=== PATIENT | female | born 1950 | race Caucasian/White ===

== ENCOUNTER 2019-07-06 12:25 | Emergency (ER) | payer MEDICARE ==
[2019-07-06 12:35] VITALS: BP 123/72; PULSE 58
[2019-07-06] MEDS ORDERED: Sodium Chloride 0.9% 10 ML Syringe FLUSH PRN (12:40)
--- NOTE | 2019-07-06 12:40 | EDM.PDOC ---
ED HPI GENERAL MEDICAL PROBLEM - General Chief Complaint: Chest Pain Stated Complaint: CHEST AND JAW PAIN Time Seen by Provider: 07/06/19 12:39 Source of Information: Reports: Patient, Old Records, RN, RN Notes Reviewed History Limitations: Reports: No Limitations - History of Present Illness INITIAL COMMENTS - FREE TEXT/NARRATIVE: Pt presents ER from home by POV with c/o sudden onset of sharp pain across the upper chest that radiated to the right jaw. The pain began while at rest at approximately 1130HRS and lasted a few minutes, then went away. Pt states she got to the ER about 20 minutes after the pain resolved. She did not take any medications, or do anything to make the pain go away. Now in the ER she states that she feels well, and symptoms free, but is anxious and would like to be checked out. She denies cough, shortness of breath, N/V, fever, chills, edema, palpitations, or orthopnea. Denies any Hx of CAD or IL. Onset: Today, Sudden Duration: Resolved Prior to Arrival Quality: Reports: Sharp Severity: Moderate Improves with: Reports: None Worsens with: Reports: None Associated Symptoms: Reports: No Other Symptoms Treatments GUT PULLER: Reports: NSAIDS Other Treatments GUT PULLER: Advil 400mg po GUT PULLER. - Related Data Allergies Allergy/AdvReac Type Severity Reaction Status Date / Time Penicillins Allergy Rash Verified 07/06/19 13:02 Home Meds: Home Meds ALPRAZolam [Alprazolam] 1 mg ORAL.INH DAILY 07/11/15 [History] ARIPiprazole [Abilify] 2 mg PO DAILY 07/06/19 [History] FLUoxetine [PROzac] 10 mg PO DAILY 07/06/19 [History] Omeprazole 40 mg PO DAILY 07/06/19 [History] Pregabalin [Lyrica] 100 mg PO TID 07/06/19 [History] Past Medical History Genitourinary History: Reports: Other (See Below) Other Genitourinary History: Kidney stone Musculoskeletal History: Reports: Fracture, Osteoporosis Other Musculoskeletal History: Hip fracture Psychiatric History: Reports: Anxiety, Depression, Other (See Below) Other Psychiatric History: Insomnia Endocrine/Metabolic History: Reports: Hypothyroidism, Vitamin D Deficiency - Past Surgical History Musculoskeletal Surgical History: Reports: Other (See Below) Social & Family History - Family History Psychiatric: Reports: Depression Other Psychiatric Family History: Brother - Living Situation & Occupation Living situation: Reports: with Family ED ROS GENERAL - Review of Systems Review Of Systems: Comprehensive ROS is negative, except as noted in HPI. ED EXAM, GENERAL - Physical Exam Exam: See Below Exam Limited By: No Limitations General Appearance: Alert, WD/WN, No Apparent Distress, Anxious Eye Exam: Bilateral Eye: Normal Inspection Nose: Normal Inspection, Normal Mucosa, No Blood Throat/Mouth: Normal Inspection, Normal Lips, Normal Teeth, Normal Gums, Normal Oropharynx, Normal Voice, No Airway Compromise Head: Atraumatic, Normocephalic Neck: Normal Inspection, Supple, Non-Tender, Full Range of Motion Respiratory/Chest: No Respiratory Distress, Lungs Clear, Normal Breath Sounds, No Accessory Muscle Use, Chest Non-Tender Cardiovascular: Normal Peripheral Pulses, Regular Rate, Rhythm, No Edema, No Gallop, No JVD, No Murmur, No Rub GI/Abdominal: Normal Bowel Sounds, Soft, Non-Tender, No Organomegaly, No Distention, No Abnormal Bruit, No Mass Back Exam: Normal Inspection Extremities: Normal Inspection, Normal Range of Motion, Non-Tender, Normal Capillary Refill, No Pedal Edema Neurological: Alert, Oriented, CN II-XII Intact, Normal Cognition, No Motor/ Sensory Deficits Psychiatric: Normal Affect, Normal Mood Skin Exam: Warm, Dry, Intact, Normal Color, No Rash EKG INTERPRETATION EKG Date: 07/06/19 Time: 12:32 Rhythm: Other (SR) Rate (Beats/Min): 63 [place]: LAD-Left [place] Deviation P-Wave: Present QRS: Normal ST-T: Normal QT: Normal Comparison: NA - No Prior EKG Course - Vital Signs Last Recorded V/S: Last Vital Signs Temp 97.8 F 07/06/19 12:34 Pulse 58 L 07/06/19 12:34 Resp 15 07/06/19 12:34 BP 123/72 07/06/19 12:34 Pulse Ox 98 07/06/19 12:34 - Orders/Labs/Meds Orders: Active Orders 24 hr Category Date Time Status EKG 12 Lead [EKG Documentation Completion] [RC] STAT Care 07/06/19 12:40 Active Peripheral IV Care [RC] . DIRECTED Care 07/06/19 12:40 Active Sodium Chloride 0.9% [Saline Flush] Med 07/06/19 12:40 Active 10 ml FLUSH ASDIRECTED PRN Peripheral IV Insertion Adult [OM.PC] Stat Oth 07/06/19 12:40 Ordered Medication Orders Sodium Chloride (Saline Flush) 10 ml FLUSH ASDIRECTED PRN PRN Reason: Keep Vein Open Last Admin: 07/06/19 13:00 Dose: 10 ml Labs: Laboratory Tests 07/06/19 07/06/19 Range/Units 12:43 13:07 WBC 8.1 (5.0-10.0) 10^3/uL RBC 4.99 (4.2-5.4) 10^6/uL Hgb 14.7 (12.0-16.0) g/dL Hct 43.5 (37.0-47.0) % MCV 87.2 (80-100) fL MCH 29.5 (27.0-34.0) pg MCHC 33.8 (33.0-35.0) g/dL Plt Count 264 (150-450) 10^3/uL Neut % (Auto) 65.5 (42.2-75.2) % Lymph % (Auto) 27.4 (20.5-50.1) % Richardson % (Auto) 6.2 (2-8) % Eos % (Auto) 0.4 L (1.0-3.0) % Baso % (Auto) 0.5 (0.0-1.0) % Sodium 138 (135-145) mmol/L Potassium 4.0 (3.6-5.0) mmol/L Chloride 104 (101-111) mmol/L Carbon Dioxide 25.0 (21.0-31.0) mmol/L Anion Gap 13.0 BUN 14 (7-18) mg/dL Creatinine 1.2 (0.6-1.3) mg/dL Est Cr Clr Drug Dosing 43.17 mL/min Estimated GFR (MDRD) 45 BUN/Creatinine Ratio 11.66 Glucose 94 (74-105) mg/dL Calcium 9.0 (8.4-10.2) mg/dl Total Bilirubin 0.7 (0.2-1.0) mg/dL AST 16 (10-42) IU/L ALT 13 (10-60) IU/L Alkaline Phosphatase 68 (42-121) IU/L Troponin I < 0.02 (0.00-0.02) ng/ml Total Protein 7.5 (6.7-8.2) g/dl Albumin 4.1 (3.2-5.5) g/dl Globulin 3.4 Albumin/Globulin Ratio 1.21 Lipase 29 (22-51) U/L Meds: Medications Generic Name Dose Route Start Last Admin Trade Name Tuan PRN Reason Stop Dose Admin Sodium Chloride 10 ml 07/06/19 12:40 07/06/19 13:00 Saline Flush FLUSH 10 ml ASDIRECTED PRN Administration Keep Vein Open Discontinued Medications Generic Name Dose Route Start Last Admin Trade Name Freq PRN Reason Stop Dose Admin Aspirin 324 mg 07/06/19 12:47 07/06/19 12:52 Aspirin PO 07/06/19 12:48 324 mg ONETIME ONE Administration - Radiology Interpretation Free Text/Narrative:: CXR: no acute process, see Rad. report. - Re-Assessments/Exams Free Text/Narrative Re-Assessment/Exam: 07/06/19 14:53 The ER became busy with several ill/critical pt's and the pt refused to wait to hear her lab results or to be discharged and chose to leave AMA. Departure - Departure Time of Disposition: 14:54 Disposition: Against Medical Advice 07 Condition: Undetermined Clinical Impression: Left against medical advice Forms: ED Department Discharge, Refusal of Care AMA Additional Instructions: Left AMA. Sepsis Event Note - Evaluation Sepsis Screening Result: No Definite Risk - Focused Exam Vital Signs: Vital Signs Temp Pulse Resp BP Pulse Ox 07/06/19 12:34 97.8 F 58 L 15 123/72 98 Date Exam was Performed: 07/06/19 Time Exam was Performed: 14:53 - My Orders Last 24 Hours: My Active Orders 07/06/19 12:40 EKG 12 Lead [EKG Documentation Completion] [RC] STAT Peripheral IV Care [RC] . DIRECTED Sodium Chloride 0.9% [Saline Flush] 10 ml FLUSH ASDIRECTED PRN Peripheral IV Insertion Adult [OM.PC] Stat - Assessment/Plan Last 24 Hours: My Active Orders 07/06/19 12:40 EKG 12 Lead [EKG Documentation Completion] [RC] STAT Peripheral IV Care [RC] . DIRECTED Sodium Chloride 0.9% [Saline Flush] 10 ml FLUSH ASDIRECTED PRN Peripheral IV Insertion Adult [OM.PC] Stat
[2019-07-06] MEDS ORDERED: Aspirin 81 MG Tab.Chew PO ONE (12:47)
[2019-07-06 13:36] LABS: CHLORIDE,CL 104 mmol/L (101-111); SODIUM,NA 138 mmol/L (135-145)
--- NOTE | 2019-07-06 14:01 | CR ---
EXAMINATION: Chest 1V Frontal SEX: Female AGE: 68 years CLINICAL HISTORY: 68-year-old female complaining of CHEST PAIN. INTERPRETATION: 1. Normal cardiac silhouette (external quality assurance monitor body leads). No pulmonary vascular congestion, cephalization of vascular flow, alveolar edema or dependent pleural effusion. 2. No lung mass, hilar lymphadenopathy or focal lobar pneumonia. 3. No focal lobar pneumonia. No atelectasis/collapse. 4. No pneumothorax, pneumomediastinum or free subdiaphragmatic air. CONCLUSION: No acute cardiopulmonary abnormality.
== END 2019-07-06 14:42 | disposition left against medical advice (07) ==
LOC: DL.ED 12:25
DX: R07.9 Chest pain, unspecified (principal); F41.9 Anxiety disorder, unspecified; F32.9 Major depressive disorder, single episode, unspecified; Z53.29 Procedure and treatment not carried out because of patient's decision for other reasons; Z79.899 Other long term (current) drug therapy
CPT/HCPCS: 36415; 71045; 80053; 83690; 84484; 85025; 93005; 99285; A9270

== ENCOUNTER 2021-02-25 20:56 | Emergency (ER) | payer MEDICARE, BC ==
[2021-02-25 21:20] VITALS: BP 109/75; PULSE 81
[2021-02-25] MEDS ORDERED: Diphtheria,Pertussis(Acell),Tetanus Vaccine 0.5 ML Syringe IM ONE (21:20)
[2021-02-25] MEDS ORDERED: Bacitracin Oint 1 GM U/D Packet TOP ONE (21:37)
[2021-02-25] MEDS ORDERED: Lidocaine 1% 30 ML SDV INJECT ONE (21:37)
--- NOTE | 2021-02-25 21:37 | EDM.PDOC ---
ED HPI GENERAL MEDICAL PROBLEM - General Chief Complaint: Lower Extremity Injury/Pain Stated Complaint: CUT FOOT Time Seen by Provider: 02/25/21 21:33 Source of Information: Reports: Patient, RN Notes Reviewed - History of Present Illness INITIAL COMMENTS - FREE TEXT/NARRATIVE: Pt is here for a left foot laceration. She stubbed her toe around 130 or 2 this afternoon. Her first friend told her it was ok, but her second friend told her she was going to need sutures so she is here for further evaluation. The bleeding has stopped prior to arrival. She denies any numbness or tingling of the toes. Onset: Today Onset Time: 13:30 Left Foot Pain Score (Numeric/FACES): 3 - Related Data Allergies Allergy/AdvReac Type Severity Reaction Status Date / Time Penicillins Allergy Rash Verified 07/06/19 13:02 Home Meds: Home Meds ALPRAZolam [Alprazolam] 1 mg ORAL.INH DAILY 07/11/15 [History] ARIPiprazole [Abilify] 2 mg PO DAILY 07/06/19 [History] Pregabalin [Lyrica] 100 mg PO TID 07/06/19 [History] RX: FLUoxetine [PROzac] 10 mg PO DAILY 07/06/19 [History] RX: Omeprazole 40 mg PO DAILY 07/06/19 [History] Past Medical History HEENT History: Reports: None Cardiovascular History: Reports: None Respiratory History: Reports: None Gastrointestinal History: Reports: GERD Genitourinary History: Reports: Other (See Below) Other Genitourinary History: Kidney stone [employer] History: Reports: Musculoskeletal History: Reports: Fracture, Osteoporosis Other Musculoskeletal History: Hip fracture Neurological History: Reports: None Psychiatric History: Reports: Anxiety, Depression, Other (See Below) Other Psychiatric History: Insomnia Endocrine/Metabolic History: Reports: Hypothyroidism, Vitamin D Deficiency Hematologic History: Reports: None Immunologic History: Reports: None Oncologic (Cancer) History: Reports: None Dermatologic History: Reports: None - Infectious Disease History Infectious Disease History: Reports: Chicken Pox, Measles, Mumps - Past Surgical History Head Surgeries/Procedures: Reports: None Other Female Surgeries/Procedures: Breat lumpectomy Musculoskeletal Surgical History: Reports: Other (See Below) Other Musculoskeletal Surgeries/Procedures:: pinned hip Oncologic Surgical History: Reports: None Social & Family History - Family History Family Medical History: No Pertinent Family History Psychiatric: Reports: Depression Other Psychiatric Family History: Brother - Tobacco Use Tobacco Use Status *Q: Never Tobacco User Second Hand Smoke Exposure: No - Caffeine Use Caffeine Use: Reports: Soda - Recreational Drug Use Recreational Drug Type: Reports: Marijuana/Hashish - Living Situation & Occupation Living situation: Reports: with Family Review of Systems - Review of Systems Review Of Systems: Comprehensive ROS is negative, except as noted in HPI. ED EXAM, GENERAL - Physical Exam Exam: See Below Exam Limited By: No Limitations General Appearance: Alert, WD/WN, No Apparent Distress Eye Exam: Bilateral Eye: Normal Inspection Ears: Normal External Exam Throat/Mouth: Normal Voice, No Airway Compromise Head: Atraumatic, Normocephalic Neck: Supple, Non-Tender Respiratory/Chest: No Respiratory Distress, Normal Breath Sounds Cardiovascular: Normal Peripheral Pulses, Regular Rate, Rhythm GI/Abdominal: Soft, No Distention (Female) Exam: Deferred Rectal (Female) Exam: Deferred Back Exam: Normal Inspection, Full Range of Motion Extremities: Normal Inspection, No Pedal Edema, Normal Capillary Refill Neurological: Alert, Oriented, Normal Cognition, No Motor/Sensory Deficits Psychiatric: Normal Affect, Normal Mood Skin Exam: Warm, Dry, Wound/Incision (laceration on plantar aspect of left great toe, about 2.5 cm in length, well approximated at neutral position, but gapes open 3-4 mm when toe is dorsiflexed. No foreign material identified. wound explored and is about 5 mm deep, no tendon or bone involvement. ) ED TRAUMA EXTREMITY PROCEDURES - Laceration/Wound Repair Left Ventral Toe - Great Lac/Wound Length In cm: 2.5 Appearance: Subcutaneous, Linear Distal NVT: Neuro & Vascular Intact Anesthetic Type: Local Local Anesthesia - Lidocaine (Xylocaine): 1% Plain Local Anesthetic Volume: Other (8 cc) Skin Prep: Chlorhexidine (Hibiciens) Exploration/Debridement/Repair: Wound Explored, Explored to Base, No Foreign Material Found Closed With: Sutures Suture Size: 4-0 # of Sutures: 4 Suture Type: Silk, Interrupted, Simple Sterile Dressing Applied: Nurse Tetanus Status Addressed: Yes Complications: No Course - Vital Signs Last Recorded V/S: Last Vital Signs Temp 97.8 F 02/25/21 21:15 Pulse 81 02/25/21 21:15 Resp 16 02/25/21 21:15 BP 109/75 02/25/21 21:15 Pulse Ox 95 02/25/21 21:15 - Orders/Labs/Meds Orders: Active Orders 24 hr Category Date Time Status Vaccines to be Administered [RC] PER UNIT ROUTINE Care 02/25/21 21:20 Active Meds: Medications Discontinued Medications Generic Name Dose Route Start Last Admin Trade Name Tuan PRN Reason Stop Dose Admin Bacitracin 1 dose 02/25/21 21:37 Bacitracin Oint 1 Gm U/D Packet TOP 02/25/21 21:38 ONETIME ONE Diphtheria/Tetanus/Acell Pertussis 0.5 ml 02/25/21 21:20 02/25/21 21:28 Diphtheria,Pertussis(Acell),Tetanus Vaccine 0.5 Ml Syringe IM 02/25/21 21:21 0.5 ml .ONCE ONE Administration Lidocaine HCl 30 ml 02/25/21 21:37 Lidocaine 1% 30 Ml Sdv INJECT 02/25/21 21:38 ONETIME ONE Departure - Departure Time of Disposition: 22:05 Disposition: Home, Self-Care 01 Condition: Good Clinical Impression: Laceration of foot Qualifiers: Encounter type: initial encounter Laterality: left Qualified Code(s): S91.312A - Laceration without foreign body, left foot, initial encounter - Discharge Information *PRESCRIPTION DRUG MONITORING PROGRAM REVIEWED*: Not Applicable *COPY OF PRESCRIPTION DRUG MONITORING REPORT IN PATIENT TAY: Not Applicable Instructions: Laceration Care, Adult, [id number] Forms: ED Department Discharge Additional Instructions: Over the counter medications and ice therapy as needed for pain If area becomes red, hot and/or painful, call/return to the ER as these may be signs of infection. Follow up with primary care provider in 7-10 days for suture removal Sepsis Event Note (ED) - Evaluation Sepsis Screening Result: No Definite Risk - Focused Exam Vital Signs: Vital Signs Temp Pulse Resp BP Pulse Ox 02/25/21 21:15 97.8 F 81 16 109/75 95 - My Orders Last 24 Hours: My Active Orders 02/25/21 21:20 Vaccines to be Administered [RC] PER UNIT ROUTINE - Assessment/Plan Last 24 Hours: My Active Orders 02/25/21 21:20 Vaccines to be Administered [RC] PER UNIT ROUTINE
== END 2021-02-25 22:55 | disposition home or self-care (01) ==
LOC: DL.ED 20:56
DX: S91.112A Laceration without foreign body of left great toe without damage to nail, initial encounter (principal); K21.9 Gastro-esophageal reflux disease without esophagitis; Z23 Encounter for immunization; Z88.0 Allergy status to penicillin; Z79.899 Other long term (current) drug therapy; W26.8XXA Contact with other sharp object(s), not elsewhere classified, initial encounter
CPT/HCPCS: 12001; 90471; 90715; 99282-25

== ENCOUNTER 2021-05-17 18:06 | Emergency (ER) | payer MEDICARE, BC ==
[2021-05-17 18:50] VITALS: BP 123/83; PULSE 73
[2021-05-17 18:57] LABS: CHLORIDE,CL 103 mmol/L (98-107); SODIUM,NA 139 mmol/L (136-145)
[2021-05-17 19:08] LABS: ACETAMINOPHEN 0 ug/mL (10-30 (Therapeutic))
--- NOTE | 2021-05-17 19:18 | EDM.PDOCBH ---
ED HPI GENERAL MEDICAL PROBLEM - General Chief Complaint: Behavioral/Psych Stated Complaint: SUICIDLE THOUGHTS Time Seen by Provider: 05/17/21 19:40 Source of Information: Reports: Patient, Other History Limitations: Reports: No Limitations - History of Present Illness INITIAL COMMENTS - FREE TEXT/NARRATIVE: ED with report of suicidal thoughts, admits to plan. Has attempted multiple times in past Last few years prior, benzo and something else, states she came here, transferred to [facility] and then transferred to [place] due to complications of overdose. No particular sngle event, just feeling more depressed and holidays coming and has few friends and no family. Little support in area. Has been seeing [facility] Counsel[facility] States recommended be assessed for possible admission to [facility] Needing Medical Clearance. Crisis Counselor [facility] here to assess patient. Recommendation for inpatient treatment, High risk. - Related Data Allergies Allergy/AdvReac Type Severity Reaction Status Date / Time Penicillins Allergy Rash Verified 05/17/21 18:23 Home Meds: Home Meds ALPRAZolam [Alprazolam] 1 mg ORAL.INH DAILY 07/11/15 [History] ARIPiprazole [Abilify] 2 mg PO DAILY 07/06/19 [History] FLUoxetine [PROzac] 10 mg PO DAILY 07/06/19 [History] Omeprazole 40 mg PO DAILY 07/06/19 [History] Pregabalin [Lyrica] 100 mg PO TID 07/06/19 [History] Past Medical History HEENT History: Reports: None Cardiovascular History: Reports: None Respiratory History: Reports: None Gastrointestinal History: Reports: GERD Genitourinary History: Reports: Other (See Below) Other Genitourinary History: Kidney stone [employer] History: Reports: Musculoskeletal History: Reports: Fracture, Osteoporosis Other Musculoskeletal History: Hip fracture Neurological History: Reports: None Psychiatric History: Reports: Anxiety, Depression, Suicide Attempt, Suicidal Ideation, Other (See Below) Other Psychiatric History: Insomnia Endocrine/Metabolic History: Reports: Hypothyroidism, Vitamin D Deficiency Hematologic History: Reports: None Immunologic History: Reports: None Oncologic (Cancer) History: Reports: None Dermatologic History: Reports: None - Infectious Disease History Infectious Disease History: Reports: Chicken Pox, Measles, Mumps - Past Surgical History Head Surgeries/Procedures: Reports: None Other Female Surgeries/Procedures: Breat lumpectomy Musculoskeletal Surgical History: Reports: Other (See Below) Other Musculoskeletal Surgeries/Procedures:: pinned hip Oncologic Surgical History: Reports: None Social & Family History - Family History Family Medical History: No Pertinent Family History Psychiatric: Reports: Depression Other Psychiatric Family History: Brother - Tobacco Use Tobacco Use Status *Q: Never Tobacco User Second Hand Smoke Exposure: No - Caffeine Use Caffeine Use: Reports: Soda - Recreational Drug Use Recreational Drug Use: No - Living Situation & Occupation Living situation: Reports: with Family ED ROS GENERAL - Review of Systems Review Of Systems: Comprehensive ROS is negative, except as noted in HPI. ED EXAM, BEHAVIORAL HEALTH - Physical Exam Exam: See Below Exam Limited By: No Limitations General Appearance: Alert, Anxious (withdrawn), Mild Distress Eye Exam: Bilateral Eye: EOMI, PERRL Ears: Normal External Exam Nose: Normal Inspection Throat/Mouth: Normal Inspection Head: Atraumatic, Normocephalic Neck: Normal Inspection Respiratory/Chest: No Respiratory Distress, Normal Breath Sounds Cardiovascular: Normal Peripheral Pulses, Regular Rate, Rhythm GI/Abdominal: Normal Bowel Sounds Back Exam: Full Range of Motion Extremities: Normal Inspection, Normal Range of Motion Neurological: Alert, Normal Cognition, Oriented x 3 Psychiatric: Alert, Depressed Mood, Flat Affect, Poor Eye Contact, Suicidal Plan (mentions pills), Suicidal Thoughts. No: Uncooperative Skin Exam: Warm, Dry, Intact, Normal color COURSE, BEHAVIORAL HEALTH COMP - Course Vital Signs: Last Vital Signs Temp 97.4 F 05/17/21 18:35 Pulse 73 05/17/21 18:35 Resp 18 05/17/21 18:35 BP 123/83 05/17/21 18:35 Pulse Ox 95 05/17/21 18:35 Orders, Labs, Meds: Active Orders 24 hr Category Date Time Status Suicide Precautions [RC] .Per Facility Policy Care 05/17/21 19:08 Active CULTURE URINE [RM] Stat Lab 05/18/21 01:50 Received Laboratory Tests 05/17/21 05/17/21 05/17/21 Range/Units 18:27 18:31 18:31 WBC 7.4 (5.0-10.0) 10^3/uL RBC 5.05 (4.2-5.4) 10^6/uL Hgb 14.7 (12.0-16.0) g/dL Hct 44.2 (37.0-47.0) % MCV 87.5 (80-100) fL MCH 29.1 (27.0-34.0) pg MCHC 33.3 (33.0-35.0) g/dL Plt Count 240 (150-450) 10^3/uL Neut % (Auto) 57.9 (42.2-75.2) % Lymph % (Auto) 33.8 (20.5-50.1) % Boyd % (Auto) 7.1 (2-8) % Eos % (Auto) 0.7 L (1.0-3.0) % Baso % (Auto) 0.5 (0.0-1.0) % Sodium 139 (136-145) mmol/L Potassium 4.0 (3.5-5.1) mmol/L Chloride 103 (98-107) mmol/L Carbon Dioxide 27 (21-32) mmol/L Anion Gap 13.0 (7-13) mEq/L BUN 14 (7-18) mg/dL Creatinine 1.09 H (0.55-1.02) mg/dL Est Cr Clr Drug Dosing TNP Estimated GFR (MDRD) 50 BUN/Creatinine Ratio 12.8 (No establ ref range) Glucose 99 (70-99) mg/dL Calcium 9.1 (8.5-10.1) mg/dL Total Bilirubin 0.3 (0.2-1.0) mg/dL AST 16 (15-37) U/L ALT 18 (14-59) U/L Alkaline Phosphatase 103 (46-116) U/L Total Protein 8.3 H (6.4-8.2) g/dL Albumin 3.9 (3.4-5.0) g/dL Globulin 4.4 Albumin/Globulin Ratio 0.9 Urine Color (YELLOW) Urine Appearance (CLEAR) Urine pH (5.0-9.0) Ur Specific Edna (1.005-1.030) Urine Protein (NEGATIVE) Urine Glucose (UA) (NEGATIVE) Urine Ketones (NEGATIVE) Urine Occult Blood (NEGATIVE) Urine Nitrite (NEGATIVE) Urine Bilirubin (NEGATIVE) Urine Urobilinogen (0.2-1.0) mg/dL Ur Leukocyte Esterase (NEGATIVE) Urine RBC (0-5) /HPF Urine WBC (0-5/HPF) /HPF Ur Epithelial Cells (NOT SEEN) /HPF Amorphous Sediment (NOT SEEN) /HPF Urine Mucus (NOT SEEN) /LPF Salicylates (2.8-20(Therapeutic)) mg/dL Urine Opiates Screen (NEGATIVE) Ur Oxycodone Screen (NEGATIVE) Urine Methadone Screen (NEGATIVE) Acetaminophen 0 L (10-30 (Therapeutic)) ug/mL Ur Barbiturates Screen (NEGATIVE) U Tricyclic Antidepress (NEGATIVE) Ur Phencyclidine Scrn (NEGATIVE) Ur Amphetamine Screen (NEGATIVE) U Methamphetamines Scrn (NEGATIVE) Urine MDMA Screen (NEGATIVE) U Benzodiazepines Scrn (NEGATIVE) Urine Cocaine Screen (NEGATIVE) U Marijuana (THC) Screen (NEGATIVE) Ethyl Alcohol < 3 (0) mg/dL SARS-CoV-2 RNA (KAI) Negative (NEGATIVE) 05/17/21 05/18/21 05/18/21 Range/Units 18:31 01:50 01:50 WBC (5.0-10.0) 10^3/uL RBC (4.2-5.4) 10^6/uL Hgb (12.0-16.0) g/dL Hct (37.0-47.0) % MCV (80-100) fL MCH (27.0-34.0) pg MCHC (33.0-35.0) g/dL Plt Count (150-450) 10^3/uL Neut % (Auto) (42.2-75.2) % Lymph % (Auto) (20.5-50.1) % Boyd % (Auto) (2-8) % Eos % (Auto) (1.0-3.0) % Baso % (Auto) (0.0-1.0) % Sodium (136-145) mmol/L Potassium (3.5-5.1) mmol/L Chloride (98-107) mmol/L Carbon Dioxide (21-32) mmol/L Anion Gap (7-13) mEq/L BUN (7-18) mg/dL Creatinine (0.55-1.02) mg/dL Est Cr Clr Drug Dosing Estimated GFR (MDRD) BUN/Creatinine Ratio (No establ ref range) Glucose (70-99) mg/dL Calcium (8.5-10.1) mg/dL Total Bilirubin (0.2-1.0) mg/dL AST (15-37) U/L ALT (14-59) U/L Alkaline Phosphatase (46-116) U/L Total Protein (6.4-8.2) g/dL Albumin (3.4-5.0) g/dL Globulin Albumin/Globulin Ratio Urine Color Yellow (YELLOW) Urine Appearance Clear (CLEAR) Urine pH 5.5 (5.0-9.0) Ur Specific Edna >= 1.030 (1.005-1.030) Urine Protein Negative (NEGATIVE) Urine Glucose (UA) Negative (NEGATIVE) Urine Ketones Negative (NEGATIVE) Urine Occult Blood Trace-intact H (NEGATIVE) Urine Nitrite Negative (NEGATIVE) Urine Bilirubin Negative (NEGATIVE) Urine Urobilinogen 0.2 (0.2-1.0) mg/dL Ur Leukocyte Esterase Small H (NEGATIVE) Urine RBC 0-5 (0-5) /HPF Urine WBC 5-10 H (0-5/HPF) /HPF Ur Epithelial Cells Few (NOT SEEN) /HPF Amorphous Sediment Few (NOT SEEN) /HPF Urine Mucus Few H (NOT SEEN) /LPF Salicylates < 2.8 L (2.8-20(Therapeutic)) mg/dL Urine Opiates Screen Negative (NEGATIVE) Ur Oxycodone Screen Negative (NEGATIVE) Urine Methadone Screen Negative (NEGATIVE) Acetaminophen (10-30 (Therapeutic)) ug/mL Ur Barbiturates Screen Negative (NEGATIVE) U Tricyclic Antidepress Negative (NEGATIVE) Ur Phencyclidine Scrn Negative (NEGATIVE) Ur Amphetamine Screen Negative (NEGATIVE) U Methamphetamines Scrn Negative (NEGATIVE) Urine MDMA Screen Negative (NEGATIVE) U Benzodiazepines Scrn Positive H (NEGATIVE) Urine Cocaine Screen Negative (NEGATIVE) U Marijuana (THC) Screen Negative (NEGATIVE) Ethyl Alcohol (0) mg/dL SARS-CoV-2 RNA (KAI) (NEGATIVE) Re-Assessment/Re-Exam: TC Needs Assessment [facility] requesting info to be faxed [phone]. States they will review info and get back to us. Crisis counselor reports patient does have friend to transport if bed becomes available. 0: still awaiting call back from [facility]. Patient resting, intermittent light dozing. 0130: 3rd attempt to follow up with Needs Assessment. No one answering phone at [facility]. 0230: Attempt TC to [facility] Needs Assessment, no answer. [facility] no bed availability [id number]un[address] Jin. Patient accepted for admission. Tx via [facility]. Departure - Departure Time of Disposition: 02:53 Disposition: DC/Tfer to Acute Hospital 02 Condition: Good Clinical Impression: Depressive disorder, Suicidal ideations - Discharge Information *PRESCRIPTION DRUG MONITORING PROGRAM REVIEWED*: No *COPY OF PRESCRIPTION DRUG MONITORING REPORT IN PATIENT TAY: No Forms: ED Department Discharge, Interfacility Transfer EMTALA Sepsis Event Note (ED) - Evaluation Sepsis Screening Result: No Definite Risk - Focused Exam Vital Signs: Vital Signs Temp Pulse Resp BP Pulse Ox 05/17/21 18:35 97.4 F 73 18 123/83 95 - My Orders Last 24 Hours: My Active Orders 05/17/21 19:08 Suicide Precautions [RC] .Per Facility Policy - Assessment/Plan Last 24 Hours: My Active Orders 05/17/21 19:08 Suicide Precautions [RC] .Per Facility Policy
[2021-05-18 02:12] LABS: BENZODIAZEPINE,URINE POSITIVE (NEGATIVE); MDMA (ECSTASY), URINE NEGATIVE (NEGATIVE); METHADONE,URINE NEGATIVE (NEGATIVE); METHAMPHETAMINES,URINE NEGATIVE (NEGATIVE); OPIATES,URINE NEGATIVE (NEGATIVE); TCA,URINE NEGATIVE (NEGATIVE)
[2021-05-18 02:13] LABS: AMPHETAMINES,URINE NEGATIVE (NEGATIVE); BARBITURATES,URINE NEGATIVE (NEGATIVE); OXYCODONE,URINE NEGATIVE (NEGATIVE); PHENCYCLIDINE,URINE NEGATIVE (NEGATIVE)
== END 2021-05-18 03:18 ==
LOC: DL.ED 18:06
DX: F32.A Depression, unspecified (principal); K21.9 Gastro-esophageal reflux disease without esophagitis; Z79.899 Other long term (current) drug therapy; Z88.0 Allergy status to penicillin; Z20.822 Contact with and (suspected) exposure to COVID-19
CPT/HCPCS: 36415; 80053; 80143; 80179; 80305-QW; 80307; 81001; 85025; 87086; 99285; U0002

== ENCOUNTER 2021-09-06 13:50 | Inpatient (IN) | payer MEDICARE, BC ==
[2021-09-06] MEDS ORDERED: Sodium Chloride 0.9% 1,000 ML IV ONE ×2 (14:24→15:55)
[2021-09-06] MEDS: Sodium Chloride 0.9% 10 ML Syringe FLUSH PRN ×2 (14:38→21:48)
[2021-09-06 14:52] LABS: CORONAVIRUS COVID-19 NAA NEGATIVE (NEGATIVE); RESPIRATORY SYNCYTIAL VIR NAA NEGATIVE (NEGATIVE)
[2021-09-06 15:10] LABS: ANION GAP 13.7 mEq/L (7-13)
[2021-09-06] MEDS ORDERED: Iopamidol 755 Mg/ML 100 ML Bottle IVPUSH ONE (15:54)
[2021-09-06] MEDS ORDERED: Acetaminophen 325 MG Tab PO PRN (18:37)
[2021-09-06] MEDS ORDERED: Docusate Sodium 100 MG Cap PO PRN (18:37)
[2021-09-06] MEDS ORDERED: Temazepam 15 MG Cap PO PRN (18:37)
[2021-09-06] MEDS ORDERED: Ondansetron 4 MG/2 ML SDV IVPUSH PRN (18:37)
[2021-09-06] MEDS: Pregabalin 50 MG Cap PO SCH (21:21)
[2021-09-06] MEDS: Heparin Sodium 5,000 Units/ML Vial SUBCUT SCH (21:21)
[2021-09-06] MEDS: atorvaSTATin 10 MG Tab PO SCH (21:21)
[2021-09-06] MEDS: Levofloxacin/Dextrose 5%-Water 750 MG in Premix Bag 1 BAG IV SCH (21:48)
[2021-09-06] MEDS: ALPRAZolam 0.5 MG Tab PO PRN (23:25)
[2021-09-07] MEDS: Heparin Sodium 5,000 Units/ML Vial SUBCUT SCH ×3 (06:31→21:35)
[2021-09-07] MEDS: FLUoxetine 10 MG Cap PO SCH (08:39)
[2021-09-07] MEDS: Pregabalin 50 MG Cap PO SCH ×3 (08:39→20:35)
[2021-09-07] MEDS: Omeprazole 20 MG Cap.CR PO SCH (08:40)
[2021-09-07] MEDS ORDERED: Non-Formulary Medication 1 Each (Aripiprazole 2 MG Tablet) PO SCH (09:00)
[2021-09-07 09:32] LABS: ANION GAP 10.8 mEq/L (7-13)
[2021-09-07] MEDS: oxyCODONE 5 MG Tab PO PRN (14:14)
[2021-09-07] MEDS: Sodium Chloride 0.9% 10 ML Syringe FLUSH PRN (17:50)
[2021-09-07] MEDS: Levofloxacin/Dextrose 5%-Water 750 MG in Premix Bag 1 BAG IV SCH (17:51)
[2021-09-07] MEDS: atorvaSTATin 10 MG Tab PO SCH (20:35)
[2021-09-07] MEDS: ALPRAZolam 0.5 MG Tab PO PRN (20:35)
[2021-09-08] MEDS: Heparin Sodium 5,000 Units/ML Vial SUBCUT SCH ×3 (05:35→21:02)
[2021-09-08 06:57] LABS: ANION GAP 12.7 mEq/L (7-13)
[2021-09-08] MEDS: Pregabalin 50 MG Cap PO SCH ×3 (09:23→21:02)
[2021-09-08] MEDS: FLUoxetine 10 MG Cap PO SCH (09:24)
[2021-09-08] MEDS: Omeprazole 20 MG Cap.CR PO SCH (09:24)
[2021-09-08] MEDS: oxyCODONE 5 MG Tab PO PRN (13:10)
[2021-09-08] MEDS ORDERED: Levofloxacin 500 MG Tab PO SCH (18:00)
[2021-09-08] MEDS: atorvaSTATin 10 MG Tab PO SCH (21:01)
[2021-09-08] MEDS: ALPRAZolam 0.5 MG Tab PO PRN (21:01)
[2021-09-09] MEDS ORDERED: Omeprazole 20 MG Cap.CR PO SCH (06:00)
[2021-09-09] MEDS: Heparin Sodium 5,000 Units/ML Vial SUBCUT SCH ×2 (06:00→14:48)
[2021-09-09 06:54] LABS: ANION GAP 9.5 mEq/L (7-13)
[2021-09-09] MEDS: Pregabalin 50 MG Cap PO SCH ×2 (09:04→13:51)
[2021-09-09] MEDS: FLUoxetine 10 MG Cap PO SCH (09:04)
[2021-09-09] MEDS: ALPRAZolam 0.5 MG Tab PO PRN (12:11)
[2021-09-09 12:54] VITALS: BP 101/54; PULSE 64
[2021-09-09] MEDS ORDERED: Levofloxacin 500 MG Tab ONE (14:40)
[2021-09-09] MEDS ORDERED: Levofloxacin 250 MG Tab ONE (14:40)
[2021-09-09] MEDS ORDERED: Levofloxacin 250 MG Tab PO ONE (14:59)
[2021-09-09] MEDS ORDERED: Levofloxacin 500 MG Tab PO SCH (15:00)
== END 2021-09-09 15:00 | disposition home health service (06) | DRG 193 ==
LOC: DL.ED 13:50 → DL.MS 17:06 → DL.ED 17:35
PROVIDERS: ADMIT Internal Medicine; ATTEND Internal Medicine
DX: J18.9 Pneumonia, unspecified organism (principal); E86.0 Dehydration; R53.1 Weakness; J96.01 Acute respiratory failure with hypoxia; D68.9 Coagulation defect, unspecified; E78.5 Hyperlipidemia, unspecified; F39 Unspecified mood [affective] disorder; G47.00 Insomnia, unspecified; F41.9 Anxiety disorder, unspecified; F32.A Depression, unspecified; K21.9 Gastro-esophageal reflux disease without esophagitis; M81.0 Age-related osteoporosis without current pathological fracture; G47.30 Sleep apnea, unspecified; E03.9 Hypothyroidism, unspecified; Z20.822 Contact with and (suspected) exposure to COVID-19; E55.9 Vitamin D deficiency, unspecified; Z79.899 Other long term (current) drug therapy; Z87.442 Personal history of urinary calculi; Z88.0 Allergy status to penicillin
CPT/HCPCS: 0241U; 36415; 71260; 80048; 80053; 81001; 82550; 82947; 83605; 83735; 84443; 85025; 85379; 87040; 96374; 97161; 97165; 99285; 93010; 99222; 99232; 99239; 99284; A9270-GY; J1644; J1956; J3370; J3490; J7030; J7050; Q9967

== ENCOUNTER 2021-12-04 16:34 | Emergency (ER) | payer MEDICARE, BC ==
[2021-12-04 15:53] VITALS: BP 120/62; PULSE 62
[~2021-12-04 16:34] MED LIST: Sodium Chloride 0.9% 10 ML Syringe FLUSH PRN
[2021-12-04 17:03] LABS: ANION GAP 11.9 mEq/L (7-13)
[2021-12-04 17:49] LABS: CORONAVIRUS COVID-19 NAA NEGATIVE (NEGATIVE)
== END 2021-12-04 18:26 | disposition home or self-care (01) ==
LOC: DL.ED 16:34
DX: J18.9 Pneumonia, unspecified organism (principal); K21.9 Gastro-esophageal reflux disease without esophagitis; Z79.899 Other long term (current) drug therapy; Z88.0 Allergy status to penicillin; Z20.822 Contact with and (suspected) exposure to COVID-19
CPT/HCPCS: 0240U; 36415; 71045; 80053; 81003; 83605; 83735; 83880; 84443; 84484; 85025; 86140; 87040; 93005; 93010; 99284; 99285; J3490

== ENCOUNTER 2025-02-03 14:16 | Emergency (ER) | payer MEDICARE, OTHER ==
[2025-02-03] MEDS ORDERED: Sodium Chloride 0.9% 10 ML Syringe FLUSH PRN (14:30)
[2025-02-03 15:05] LABS: BASOPHILS PERCENT AUTO 0.5 % (0.0-1.0); EOSINOPHILS PERCENT AUTO 1.0 % (1.0-3.0); LYMPHOCYTES PERCENT AUTO 34.3 % (20.5-50.1); MONOCYTES PERCENT AUTO 9.2 % (2-8); NEUTROPHILS PERCENT AUTO 55.0 % (42.2-75.2); PLATELET COUNT,PLT 227 10^3/uL (150-450); RED BLOOD CELL COUNT 4.43 10^6/uL (4.2-5.4); WHITE BLOOD CELL COUNT,WBC 6.1 10^3/uL (5.0-10.0)
[2025-02-03 15:26] LABS: INR 0.9 (0.9-1.2); PTT,PARTIAL THROMBOPLSTIN TIME 22.6 SEC (22.0-34.0)
[2025-02-03 15:28] LABS: A/G RATIO 0.9; ALANINE AMINOTRANSFERASE,ALT 23.0 U/L (14-59); ASPARTATE AMNIOTRANSFERASE,AST 16.0 U/L (15-37); BILIRUBIN TOTAL 0.3 mg/dL (0.2-1.0); BLOOD UREA NITROGEN,BUN 14.0 mg/dL (7-18); CARBON DIOXIDE,CO2 28.0 mmol/L (21-32); CHLORIDE,CL 104.0 mmol/L (98-107); CREATININE 1.02 mg/dL (0.55-1.02); EST CRCL DRUG DOSING (CG) 46.67 mL/min; ESTIMATED GFR 58.0 mL/min (>=60); GLUCOSE RANDOM 99.0 mg/dL (70-99); POTASSIUM,K 4.1 mmol/L (3.5-5.1); PROTEIN TOTAL,TP 7.9 g/dL (6.4-8.2); SODIUM,NA 140.0 mmol/L (136-145)
[2025-02-03 16:15] VITALS: BP 111/79; PULSE 58
== END 2025-02-03 15:56 | disposition home or self-care (01) ==
LOC: DL.ED 14:16
DX: G51.0 Bell's palsy (principal); K21.9 Gastro-esophageal reflux disease without esophagitis; Z79.899 Other long term (current) drug therapy; Z88.0 Allergy status to penicillin
CPT/HCPCS: 36415; 70450; 80053; 82947; 84484; 85025; 85610; 85730; 93005; 93010; 99285; 99291